=== PATIENT | female | born 1975 ===

== ENCOUNTER 2021-12-21 06:10 | Day surgery (SDC) | payer OTHER ==
[2021-12-21] MEDS ORDERED: IBU600 MG PO (10:21)
== END 2021-12-21 17:14 | disposition home or self-care (01) ==
LOC: CIR.AMB 06:10
PROVIDERS: ATTEND Obstetrics & Gynecology Gynecology
DX: N84.0 Polyp of corpus uteri (principal); Q52.4 Other congenital malformations of vagina; Z20.822 Contact with and (suspected) exposure to COVID-19; J45.909 Unspecified asthma, uncomplicated